=== PATIENT | female | born 1955 | race Caucasian/White ===

== ENCOUNTER → 2016-06-01 18:14 | Outpatient (CLI) | payer OTHER ==
[2016-06-04 18:07] LABS: HCVGENO - HEP C QUANT HCV Not Detected IU/mL (())
== END | disposition home or self-care (01) ==
LOC: D.LABREF 18:14
PROVIDERS: Family Medicine
DX: Z11.59 Encounter for screening for other viral diseases (principal)

== ENCOUNTER → 2016-06-08 07:59 | Outpatient (CLI) | payer OTHER | END | disposition home or self-care (01) | LOC: D.US 07:59 | DX: R94.5 Abnormal results of liver function studies (principal) ==

== ENCOUNTER → 2016-06-17 10:46 | Outpatient (CLI) | payer OTHER | END | disposition home or self-care (01) | LOC: D.NM 10:46 | DX: R10.11 Right upper quadrant pain (principal) ==

== ENCOUNTER → 2016-09-27 10:21 | Outpatient (CLI) | payer OTHER | END | disposition home or self-care (01) | LOC: D.US 10:21 | DX: E04.9 Nontoxic goiter, unspecified (principal) ==

== ENCOUNTER → 2017-03-24 10:13 | Outpatient (CLI) | payer OTHER | END | disposition home or self-care (01) | LOC: D.US 10:13 | DX: E04.1 Nontoxic single thyroid nodule (principal) ==

== ENCOUNTER → 2018-01-18 16:58 | Outpatient (CLI) | payer OTHER | END | disposition home or self-care (01) | LOC: D.MAMMO 15:45 | DX: Z12.31 Encounter for screening mammogram for malignant neoplasm of breast (principal) ==

== ENCOUNTER 2018-04-16 08:00 | Outpatient (CLI) | payer OTHER | END 2018-04-16 09:00 | disposition home or self-care (01) | LOC: D.MAMMO 08:00 | DX: R92.8 Other abnormal and inconclusive findings on diagnostic imaging of breast (principal) ==